=== PATIENT | female | born 1945 | race Caucasian/White ===

== ENCOUNTER 2018-11-09 14:47 | Emergency (ER) | payer MEDICARE ==
[2018-11-09 16:00] LABS: Bilirubin Negative (Negative); Blood, Urine Negative (Negative); Clarity Hazy (Clear); Glucose, Urine (Dipstick) Negative (Negative); Leukocyte Trace (Negative); Nitrite Positive (Negative); Protein, Urine (Dipstick) Trace mg/dL (Neg-Trace); Urobilinogen 0.2 mg/dL (Less than 2)
[2018-11-09 16:05] LABS: Bacteria/HPF 4+ HPF (None Seen); Renal Epithelial 0-3 HPF (None Seen); Squamous Epithelial 0-3 HPF (0-3)
[2018-11-09 16:45] LABS: ALT (SGPT) 24 U/L (8-55); AST (SGOT) 17 U/L (5-34); Albumin 4.2 g/dL (3.4-4.8); Alkaline Phosphatase 118 U/L (40-110); Anion Gap 17 mmol/L (10-20); BUN (Urea Nitrogen) 16 mg/dL (9.8-20.1); Bilirubin, Total 0.3 mg/dL (0.2-1.2); Calc. Creatinine Clearance 0 mL/min (70-130); Calcium 9.9 mg/dL (7.8-10.44); Carbon Dioxide 24 mmol/L (23-31); Chloride 104 mmol/L (98-107); Estimated GFR-MDRD Greater than 90; Globulin 2.6 g/dL (2.4-3.5); Glucose 85 mg/dL (80-115); Lipase 16 U/L (8-78); Potassium 4.1 mmol/L (3.5-5.1); Protein, Total 6.8 g/dL (6.0-8.3); Sodium 141 mmol/L (136-145)
[2018-11-09] MEDS ORDERED: cefTRIAXone\\ROCEPHIN 1 GM VIAL ONE (16:47)
[2018-11-09] MEDS ORDERED: Sodium Chloride 0.9% 100 ML ONE (16:47)
[2018-11-09 16:54] LABS: Band 1 % (5-11); Eosinophils 2 % (0-10); Hemoglobin 13.2 g/dL (12.0-16.0); Lymphocytes 18 % (21-51); MDiff Complete? YES; Mean Corpuscular HGB CONC 32.9 g/dL (32.0-36.0); Mean Corpuscular Hemoglobin 28.4 pg (27.0-31.0); Mean Corpuscular Volume 86.4 fL (78.0-98.0); Mean Platelet Volume 6.6 fL (7.4-10.4); Monocytes 4 % (0-10); Neutrophil 73 % (42-75); Platelet Count 215 thou/uL (130-400); Platelet Morphology Comment Appears Adequate; RBC Distribution Width 12.4 % (11.5-14.5); Reactive Lymphocytes 2 % (0-10); Red Blood Cell (RBC) Count 4.64 mill/uL (4.20-5.40); White Blood Cell (WBC) Count 4.5 thou/uL (4.8-10.8)
--- NOTE | 2018-11-09 17:13 | RAD ---
LEFT HIP: 11/09/18 HISTORY: Hip pain. There is a left hip prosthesis. Components appear adequately positioned. No evidence of prosthetic lo osening. No fracture or acute abnormality. IMPRESSION: No acute abnormality. POS: OFF
--- NOTE | 2018-11-09 17:18 | CT ---
CT HEAD WITHOUT CONTRAST: 11/09/18 INDICATIONS: Left side weakness. No comparison. There are chronic ischemic white matter changes. There is evidence of acute cortical infarct. There i s no mass or hemorrhage seen. IMPRESSION: Chronic ischemic white matter changes. No evidence of acute cortical infarct. POS: OFF
[2018-11-09] MEDS ORDERED: methylPREDNISolone Sod Succ/PF 125 MG/2 ML VIAL ONE (18:56)
== END 2018-11-09 20:17 ==
LOC: NAV ERS 14:47
DX: N39.0 Urinary tract infection, site not specified (principal); G35 Multiple sclerosis; Z79.899 Other long term (current) drug therapy; Z79.82 Long term (current) use of aspirin
CPT/HCPCS: 51702; 70450; 80053; 81003; 81015; 83690; 85025; 87077; 87086; 87186; 96365; 96375; J0696; J2930; J3490